=== PATIENT | female | born 1955 | race Native Hawaiian/Other Pacific Islander ===

== ENCOUNTER 2018-08-10 12:56 | Emergency (ER) | payer BC, OTHER ==
--- NOTE | 2018-08-10 14:00 | Emergency Department Report ---
Chief Complaint: Abdominal Pain Stated Complaint: BLOOD IN URINE/KIDNEY PAIN Time Seen by Provider: 08/10/18 13:57 - HPI History of Present Illness: pt presents with left sided flank pain that radiates to the LLQ that began 2 weeks ago (+) hematuria, dysuria, frequency (+) vaginal burning (+) nausea no fever, no vomiting, denies vaginal discharge PMHx fibromylagia, arthritis, migraines PSHx right sided kidney stone removal last kindey stone was in 2006 - Exam Vital Signs: Vital Signs 08/10/18 13:46 Temperature 98.5 F Pulse Rate 65 Respiratory 15 Rate Blood Pressure 137/36 [Left] O2 Sat by Pulse 100 Oximetry MSE screening note: Focused history and physical exam performed. Due to findings the following was ordered: UA, Lab, Ct abd/pelvis without contrast ED Disposition for MSE Condition: Stable Instructions: Abdominal Pain (ED)
[2018-08-10 14:28] LABS: Basophils % (Auto) 0.5 % (0.0-1.8); Eosinophils % (Auto) 0.4 % (0.0-4.3); Hematocrit 33.8 % (30.3-42.9); Hemoglobin 11.9 gm/dl (10.1-14.3); Lymphocytes # (Auto) 3.6 K/mm3 (1.2-5.4); Lymphocytes % (Auto) 36.6 % (13.4-35.0); Mean Corpuscular HGB Conc 35 % (30-34); Mean Corpuscular Volume 95 fl (79-97); Monocytes # (Auto) 0.5 K/mm3 (0.0-0.8); Platelet Count 211 K/mm3 (140-440); Red Blood Count 3.56 M/mm3 (3.65-5.03); Red Cell Distribution Width 12.7 % (13.2-15.2)
[2018-08-10 14:59] LABS: Bilirubin,Urine NEG (Negative); Blood,Urine LG (Negative); Calcium Oxalate Crystals,Urine 1+; Color,Urine Amber (Yellow); Mucus,Urine 3+ /HPF
[2018-08-10 15:05] LABS: RBC,Urine > 182.0 /HPF (0.0-6.0)
[2018-08-10 15:58] VITALS: BP 127/55
[2018-08-10] MEDS ORDERED: ZOFRAN IV ONE (16:09)
[2018-08-10] MEDS ORDERED: DILAUDID IV ONE (16:10)
--- NOTE | 2018-08-10 17:03 | Cat Scan Report ---
PROCEDURE: CT ABDOMEN PELVIS WO CON TECHNIQUE: Computerized axial tomography of the abdomen and pelvis was performed without intravenous contrast. This study is performed without intravascular contrast material and its sensitivity for ab dominal and pelvic pathology, including neoplasms, inflammation, abscess, free fluid, thrombosis, art erial dissection and infarction, is reduced compared with a contrast enhanced study. CT DOSE LENGTH PRODUCT: 658 mGycm HISTORY: left flank pain, LLQ pain, hx of nephrolithiasis COMPARISONS: None . FINDINGS: Lower Lung baires: Calcified granuloma seen right lower lobe posteriorly. Small amount of dependent atelectasis also visualized. Upper Abdomen: Gallbladder, liver, adrenal glands, pancreas and spleen are unremarkable. Kidneys, Ureters and Urinary bladder: The right kidney and right ureter are unremarkable. There are 2 nonobstructing calculi in the lower third of the left kidney. These measure up to 4.4 mm greatest diameter. The left collecting system is not significantly distended however the left ureter appears to be minimally distended. On image number [id number] series 2 axial image there is a 5.4 x 3.7 mm calculus within the distal left ureter. This is located less than 2 cm from the left ureterovesical junction. Left ureter is otherwise unrema rkable. The urinary bladder is only partially filled and shows no focal abnormalities. Retroperitoneum: Atherosclerotic changes are seen in the abdominal aorta. No aneurysm is visualized. Nonspecific subcentimeter lymph nodes are seen in the retroperitoneum. No pathologically enlarged ly mph nodes are identified. Bowel: Moderate sigmoid diverticulosis visualized without evidence of diverticulitis. Bowel loops ar e otherwise unremarkable. Normal-appearing appendix in right lower quadrant. No evidence of bowel obs truction ascites or free intraperitoneal gas. Reproductive organs: Prostate gland does not appear to be significantly enlarged. Other: No acute bone abnormalities are seen. IMPRESSION: Nonobstructing calculi visualized left kidney as described. Distal left ureteral calculus present as described. Left ureter is mildly distended. No significant h ydronephrosis is seen. Prior granulomatous disease. Colonic diverticulosis without evidence of diverticulitis. This document is electronically signed by Larry Lobo MD., August 10 2018 05:01:16 PM ET
--- NOTE | 2018-08-10 17:08 | Emergency Department Report ---
ED General Adult HPI - General Chief complaint: Abdominal Pain Stated complaint: BLOOD IN URINE/KIDNEY PAIN Time Seen by Provider: 08/10/18 13:57 Source: patient Mode of arrival: Ambulatory Limitations: No Limitations - History of Present Illness Initial comments: Patient presents to the emergency department with a chief complaint left flank pain that radiates into her groin. Patient describes the pain as sharp in nature. Patient has a history of kidney stones. Patient denies chest pain, shortness breath, or headache. -: Sudden Location: abdomen Radiation: other (groin) Severity scale (0 -10): 5 Quality: sharp Consistency: colicky Improves with: none Worsens with: none Associated Symptoms: denies other symptoms Treatments Prior to Arrival: none - Related Data Previous Rx's Medication Instructions Recorded Last Taken Type Acetaminophen [Tylenol] 500 mg PO Q6HR #15 tablet 07/18/15 Unknown Rx HYDROcodone/APAP 7.5-325 [[place] 1 each PO Q6HR PRN #20 tablet 08/10/18 Unknown Rx 7.5/325] Ondansetron [Zofran Odt] 4 mg PO Q4HR PRN #20 tab.rapdis 08/10/18 Unknown Rx Ondansetron [Zofran Odt] 4 mg PO Q4HR PRN #20 tab.rapdis 08/10/18 Unknown Rx Sulfamethoxazole/Trimethoprim 1 each PO BID #14 tablet 08/10/18 Unknown Rx [Bactrim DS TAB] Tamsulosin [Flomax] 0.4 mg PO QDAY #7 cap 08/10/18 Unknown Rx Allergies Allergy/AdvReac Type Severity Reaction Status Date / Time ibuprofen [From Motrin] Allergy Unknown Verified 07/18/15 03:51 iodine Allergy Unknown Verified 07/18/15 03:51 ED Review of Systems ROS: Stated complaint: BLOOD IN URINE/KIDNEY PAIN Other details as noted in HPI Comment: All other systems reviewed and negative Constitutional: denies: chills, fever Eyes: denies: eye pain, eye discharge, vision change ENT: denies: ear pain, throat pain Respiratory: denies: cough, shortness of breath, wheezing Cardiovascular: denies: chest pain, palpitations Endocrine: no symptoms reported Gastrointestinal: denies: abdominal pain, nausea, diarrhea Genitourinary: denies: urgency, dysuria, discharge Musculoskeletal: denies: back pain, joint swelling, arthralgia Skin: denies: rash, lesions Neurological: denies: headache, weakness, paresthesias Psychiatric: denies: anxiety, depression Hematological/Lymphatic: denies: easy bleeding, easy bruising ED Past Medical Hx - Past Medical History Hx Arthritis: Yes Hx Headaches / Migraines: Yes Hx Asthma: Yes Additional medical history: Fibromyalgia - Surgical History Additional Surgical History: kidney, Hysterectomy - Social History Smoking Status: Former Smoker Substance Use Type: None - Medications Home Medications: Home Medications Medication Instructions Recorded Confirmed Last Taken Type Acetaminophen [Tylenol] 500 mg PO Q6HR #15 tablet 07/18/15 Unknown Rx HYDROcodone/APAP 7.5-325 [[place] 1 each PO Q6HR PRN #20 tablet 08/10/18 Unknown Rx 7.5/325] Ondansetron [Zofran Odt] 4 mg PO Q4HR PRN #20 tab.rapdis 08/10/18 Unknown Rx Ondansetron [Zofran Odt] 4 mg PO Q4HR PRN #20 tab.rapdis 08/10/18 Unknown Rx Sulfamethoxazole/Trimethoprim 1 each PO BID #14 tablet 08/10/18 Unknown Rx [Bactrim DS TAB] Tamsulosin [Flomax] 0.4 mg PO QDAY #7 cap 08/10/18 Unknown Rx ED Physical Exam - General Limitations: No Limitations General appearance: alert, in no apparent distress - Head Head exam: Present: atraumatic, normocephalic - Eye Eye exam: Present: normal appearance, PERRL, EOMI - ENT ENT exam: Present: mucous membranes moist - Neck Neck exam: Present: normal inspection - Respiratory Respiratory exam: Present: normal lung sounds bilaterally. Absent: respiratory distress - Cardiovascular Cardiovascular Exam: Present: regular rate, normal rhythm. Absent: systolic murmur, diastolic murmur, rubs, gallop - GI/Abdominal GI/Abdominal exam: Present: soft, normal bowel sounds. Absent: distended, tenderness - Extremities Exam Extremities exam: Present: normal inspection - Back Exam Back exam: Present: normal inspection - Neurological Exam Neurological exam: Present: alert, oriented X3, CN II-XII intact. Absent: motor sensory deficit - Psychiatric Psychiatric exam: Present: normal affect, normal mood - Skin Skin exam: Present: warm, dry, intact, normal color. Absent: rash ED Course Vital Signs 08/10/18 08/10/18 13:46 15:57 Temperature 98.5 F 98.6 F Pulse Rate 65 58 L Respiratory 15 16 Rate Blood Pressure 137/36 127/55 [Left] O2 Sat by Pulse 100 100 Oximetry ED Medical Decision Making - Lab Data Result diagrams: 08/10/18 14:11 08/10/18 14:11 Lab Results 08/10/18 08/10/18 08/10/18 Range/Units 14:10 14:11 14:11 WBC 9.9 (4.5-11.0) K/mm3 RBC 3.56 L (3.65-5.03) M/mm3 Hgb 11.9 (10.1-14.3) gm/dl Hct 33.8 (30.3-42.9) % MCV 95 (79-97) fl MCH 33 H (28-32) pg MCHC 35 H (30-34) % RDW 12.7 L (13.2-15.2) % Plt Count 211 (140-440) K/mm3 Lymph % (Auto) 36.6 H (13.4-35.0) % [place] % (Auto) 5.0 (0.0-7.3) % Eos % (Auto) 0.4 (0.0-4.3) % Baso % (Auto) 0.5 (0.0-1.8) % Lymph # 3.6 (1.2-5.4) K/mm3 [place] # 0.5 (0.0-0.8) K/mm3 Eos # 0.0 (0.0-0.4) K/mm3 Baso # 0.0 (0.0-0.1) K/mm3 Seg Neutrophils % 57.5 (40.0-70.0) % Seg Neutrophils # 5.7 (1.8-7.7) K/mm3 Sodium 144 (137-145) mmol/L Potassium 3.6 (3.6-5.0) mmol/L Chloride 106.2 (98-107) mmol/L Carbon Dioxide 26 (22-30) mmol/L Anion Gap 15 mmol/L BUN 14 (7-17) mg/dL Creatinine 0.6 L (0.7-1.2) mg/dL Estimated GFR > 60 ml/min BUN/Creatinine Ratio 23 % Glucose 91 (65-100) mg/dL Calcium 10.6 H (8.4-10.2) mg/dL Total Bilirubin 0.30 (0.1-1.2) mg/dL AST 15 (5-40) units/L ALT 10 (7-56) units/L Alkaline Phosphatase 98 (35-129) units/L Total Protein 6.8 (6.3-8.2) g/dL Albumin 4.2 (3.9-5) g/dL Albumin/Globulin Ratio 1.6 % Lipase 10 L (13-60) units/L Urine Color [place] (Yellow) Urine Turbidity Cloudy (Clear) Urine pH 5.0 (5.0-7.0) Ur Specific [place] 1.026 (1.003-1.030) Urine Protein 100 mg/dl (Negative) mg/dL Urine Glucose (UA) Neg (Negative) mg/dL Urine Ketones Tr (Negative) mg/dL Urine Blood Lg (Negative) Urine Nitrite Neg (Negative) Urine Bilirubin Neg (Negative) Urine Urobilinogen 2.0 (<2.0) mg/dL Ur Leukocyte Esterase Tr (Negative) Urine WBC (Auto) 11.0 H (0.0-6.0) /HPF Urine RBC (Auto) > 182.0 (0.0-6.0) /HPF U Epithel Cells (Auto) 4.0 (0-13.0) /HPF Calcium Oxalate Crystal 1+ Urine Mucus 3+ /HPF - Radiology Data Radiology results: report reviewed - Medical Decision Making Discussed results with patient Critical care attestation.: If time is entered above; I have spent that time in minutes in the direct care of this critically ill patient, excluding procedure time. ED Disposition Clinical Impression: Nephrolithiasis, UTI (urinary tract infection) Disposition: DC-01 TO HOME OR SELFCARE Is pt being admited?: No Does the pt Need Aspirin: No Condition: Stable Instructions: Kidney Stones (ED), Urinary Tract Infection in Women (ED) Additional Instructions: Return if worse Prescriptions: Sulfamethoxazole/Trimethoprim [Bactrim DS TAB] 1 each PO BID #14 tablet Tamsulosin [Flomax] 0.4 mg PO QDAY #7 cap HYDROcodone/APAP 7.5-325 [[place] 7.5/325] 1 each PO Q6HR PRN #20 tablet PRN Reason: Pain Ondansetron [Zofran Odt] 4 mg PO Q4HR PRN #20 tab.rapdis PRN Reason: Nausea Ondansetron [Zofran Odt] 4 mg PO Q4HR PRN #20 tab.rapdis PRN Reason: Nausea Referrals: [facility] MD LAM [Primary Care Provider] - 3-5 Days MAHNAZ VILLAFANA MD [Staff Physician] - 3-5 Days Time of Disposition: 18:30
[2018-08-10 17:10] LABS: Alanine Aminotransferase 10 units/L (7-56); Albumin 4.2 g/dL (3.9-5); BUN/Creatinine Ratio 23; Blood Urea Nitrogen 14 mg/dL (7-17); Calcium 10.6 mg/dL (8.4-10.2); Hemolysis Index 8
[2018-08-10] MEDS ORDERED: MORPHINE IV ONE (18:26)
== END 2018-08-10 19:35 | disposition home or self-care (01) ==
LOC: ED 12:56
DX: N39.0 Urinary tract infection, site not specified (principal); N20.0 Calculus of kidney; M19.90 Unspecified osteoarthritis, unspecified site; G43.909 Migraine, unspecified, not intractable, without status migrainosus; J45.909 Unspecified asthma, uncomplicated; Z90.710 Acquired absence of both cervix and uterus; Z87.891 Personal history of nicotine dependence; Z88.6 Allergy status to analgesic agent; Z88.8 Allergy status to other drugs, medicaments and biological substances
CPT/HCPCS: 36415; 74176; 80053; 81001; 83690; 85025; 96374; 96375; 99284; J1170; J2270; J2405

== ENCOUNTER 2018-10-04 10:27 | Emergency (ER) | payer BC ==
[2018-10-04 10:35] VITALS: BP 151/115
[2018-10-04 11:33] LABS: Basophils % (Auto) 0.5 % (0.0-1.8); Eosinophils % (Auto) 0.6 % (0.0-4.3); Hematocrit 36.9 % (30.3-42.9); Hemoglobin 12.5 gm/dl (10.1-14.3); Lymphocytes # (Auto) 3.4 K/mm3 (1.2-5.4); Lymphocytes % (Auto) 42.6 % (13.4-35.0); Mean Corpuscular HGB Conc 34 % (30-34); Mean Corpuscular Volume 97 fl (79-97); Monocytes # (Auto) 0.5 K/mm3 (0.0-0.8); Monocytes % (Auto) 6.9 % (0.0-7.3); Platelet Count 211 K/mm3 (140-440); Red Blood Count 3.79 M/mm3 (3.65-5.03); Red Cell Distribution Width 13.1 % (13.2-15.2)
[2018-10-04 11:49] LABS: BUN/Creatinine Ratio 20; Blood Urea Nitrogen 12 mg/dL (7-17); Hemolysis Index 11
[2018-10-04 11:55] LABS: Bacteria,Urine 1+ /HPF (Negative); Bilirubin,Urine NEG (Negative); Blood,Urine SM (Negative); Color,Urine Yellow (Yellow); Mucus,Urine FEW /HPF; Protein,Urine <15 mg/dL mg/dL (Negative); Urobilinogen,Urine < 2.0 mg/dL (<2.0)
--- NOTE | 2018-10-04 12:24 | Ultrasound Report ---
ULTRASOUND RENAL BILATERAL HISTORY: Recent kidney stone with worsening pain. TECHNIQUE: transabdominal ultrasound with color Doppler interrogation. FINDINGS: The right kidney measures 10.4cm. Right renal cortex: 1.4cm. The left kidney measure 11.2 s 1.9cm. Left renal cortex: cm. Scans of the kidneys show normal renal contours. There is normal central calyceal clustering and good preservation of the cortical thickness. An approximate 5 mm calyceal stone is identified near the inferior pole of the left kidney. There is no evidence of cystic disease, mass or hydronephrosis. The views of the bladder and the region of the ureters appear normal. IMPRESSION: Left renal calculus. No evidence for hydronephrosis.
--- NOTE | 2018-10-04 12:37 | Vascular Lab Report ---
PROCEDURE: VL VENOUS DUPLEX LE RT TECHNIQUE: Grayscale, color flow and spectral waveform images were obtained of right lower extremity . HISTORY: right thigh pain with swelling COMPARISON: None FINDINGS: There is no deep venous thrombosis seen in the right lower extremity. Flow is demonstrated by color flow and spectral waveform imaging. There is appropriate wall compression and augmentation. There is no evidence of superficial venous thrombus. IMPRESSION: There is no evidence for DVT in right lower extremity. This document is electronically signed by Anne Bond MD., October 04 2018 12:35:04 PM ET
--- NOTE | 2018-10-04 13:15 | Emergency Department Report ---
ED General Adult HPI - General Chief complaint: Extremity Problem,Nontraumatic Stated complaint: LEG PAIN Time Seen by Provider: 10/04/18 11:00 Source: patient Mode of arrival: Ambulatory Limitations: No Limitations - History of Present Illness Initial comments: Patient is a 63-year-old female who is presenting with right leg pain for the past several days as well as back and lower abdominal discomfort. Regarding the patient's leg pain this is been present off and on for the last 2- 3 days. It is located in the medial thigh as well as the inguinal area. She states is worse when she moves. Patient states she has had some swelling to esteban ateral legs intermittently however the pain is primarily in the right thigh. She denies any injury. Patient also has some pressure in the suprapubic region radiating to the lower back. Patient recently had kidney stones states that they were 5 stones but she only passed to. Patient also denies any nausea vomiting fevers chills or dysuria at this time. - Related Data Previous Rx's Medication Instructions Recorded Last Taken Type Acetaminophen [Tylenol] 500 mg PO Q6HR #15 tablet 07/18/15 Unknown Rx HYDROcodone/APAP 7.5-325 [[place] 1 each PO Q6HR PRN #20 tablet 08/10/18 Unknown Rx 7.5/325] Ondansetron [Zofran Odt] 4 mg PO Q4HR PRN #20 tab.rapdis 08/10/18 Unknown Rx Ondansetron [Zofran Odt] 4 mg PO Q4HR PRN #20 tab.rapdis 08/10/18 Unknown Rx Sulfamethoxazole/Trimethoprim 1 each PO BID #14 tablet 08/10/18 Unknown Rx [Bactrim DS TAB] Tamsulosin [Flomax] 0.4 mg PO QDAY #7 cap 08/10/18 Unknown Rx Phenazopyridine [Pyridium] 200 mg PO BID #6 tab 10/04/18 Unknown Rx methOCARBAMOL [Robaxin TAB] 500 mg PO Q6H PRN #10 tablet 10/04/18 Unknown Rx traMADol [Ultram] 50 mg PO Q6HR PRN #12 tablet 10/04/18 Unknown Rx Allergies Allergy/AdvReac Type Severity Reaction Status Date / Time ibuprofen [From Motrin] Allergy Unknown Verified 10/04/18 10:33 iodine Allergy Unknown Verified 10/04/18 10:33 ED Review of Systems ROS: Stated complaint: LEG PAIN Other details as noted in HPI Comment: All other systems reviewed and negative ED Past Medical Hx - Past Medical History Previous Medical History?: Yes Hx Arthritis: Yes Hx Headaches / Migraines: Yes Hx Asthma: Yes Additional medical history: Fibromyalgia - Surgical History Past Surgical History?: Yes Additional Surgical History: kidney, Hysterectomy - Social History Smoking Status: Never Smoker Substance Use Type: None - Medications Home Medications: Home Medications Medication Instructions Recorded Confirmed Last Taken Type Acetaminophen [Tylenol] 500 mg PO Q6HR #15 tablet 07/18/15 Unknown Rx HYDROcodone/APAP 7.5-325 [[place] 1 each PO Q6HR PRN #20 tablet 08/10/18 Unknown Rx 7.5/325] Ondansetron [Zofran Odt] 4 mg PO Q4HR PRN #20 tab.rapdis 08/10/18 Unknown Rx Ondansetron [Zofran Odt] 4 mg PO Q4HR PRN #20 tab.rapdis 08/10/18 Unknown Rx Sulfamethoxazole/Trimethoprim 1 each PO BID #14 tablet 08/10/18 Unknown Rx [Bactrim DS TAB] Tamsulosin [Flomax] 0.4 mg PO QDAY #7 cap 08/10/18 Unknown Rx Phenazopyridine [Pyridium] 200 mg PO BID #6 tab 10/04/18 Unknown Rx methOCARBAMOL [Robaxin TAB] 500 mg PO Q6H PRN #10 tablet 10/04/18 Unknown Rx traMADol [Ultram] 50 mg PO Q6HR PRN #12 tablet 10/04/18 Unknown Rx ED Physical Exam - General Limitations: No Limitations General appearance: alert, in no apparent distress - Head Head exam: Present: atraumatic, normocephalic - Eye Eye exam: Present: normal appearance - ENT ENT exam: Present: mucous membranes moist - Neck Neck exam: Present: normal inspection - Respiratory Respiratory exam: Present: normal lung sounds bilaterally. Absent: respiratory distress, wheezes, rales, rhonchi - Cardiovascular Cardiovascular Exam: Present: regular rate, normal rhythm. Absent: systolic murmur, diastolic murmur, rubs, gallop - GI/Abdominal GI/Abdominal exam: Present: soft, normal bowel sounds. Absent: distended, tenderness, guarding, rebound - Extremities Exam Extremities exam: Present: normal inspection - Back Exam Back exam: Present: normal inspection - Neurological Exam Neurological exam: Present: alert, oriented X3 - Psychiatric Psychiatric exam: Present: normal affect, normal mood - Skin Skin exam: Present: warm, dry, intact, normal color. Absent: rash ED Course Vital Signs 10/04/18 10:34 Temperature 98 F Pulse Rate 58 L Respiratory 18 Rate Blood Pressure 151/115 O2 Sat by Pulse 100 Oximetry ED Medical Decision Making - Lab Data Result diagrams: 10/04/18 11:13 10/04/18 11:13 Lab Results 10/04/18 10/04/18 10/04/18 Range/Units 11:13 11:13 11:29 WBC 8.0 (4.5-11.0) K/mm3 RBC 3.79 (3.65-5.03) M/mm3 Hgb 12.5 (10.1-14.3) gm/dl Hct 36.9 (30.3-42.9) % MCV 97 (79-97) fl MCH 33 H (28-32) pg MCHC 34 (30-34) % RDW 13.1 L (13.2-15.2) % Plt Count 211 (140-440) K/mm3 Lymph % (Auto) 42.6 H (13.4-35.0) % [place] % (Auto) 6.9 (0.0-7.3) % Eos % (Auto) 0.6 (0.0-4.3) % Baso % (Auto) 0.5 (0.0-1.8) % Lymph # 3.4 (1.2-5.4) K/mm3 [place] # 0.5 (0.0-0.8) K/mm3 Eos # 0.0 (0.0-0.4) K/mm3 Baso # 0.0 (0.0-0.1) K/mm3 Seg Neutrophils % 49.4 (40.0-70.0) % Seg Neutrophils # 3.9 (1.8-7.7) K/mm3 Sodium 140 (137-145) mmol/L Potassium 4.4 (3.6-5.0) mmol/L Chloride 103.5 (98-107) mmol/L Carbon Dioxide 25 (22-30) mmol/L Anion Gap 16 mmol/L BUN 12 (7-17) mg/dL Creatinine 0.6 L (0.7-1.2) mg/dL Estimated GFR > 60 ml/min BUN/Creatinine Ratio 20 % Glucose 96 (65-100) mg/dL Calcium 9.0 (8.4-10.2) mg/dL Urine Color Yellow (Yellow) Urine Turbidity Clear (Clear) Urine pH 8.0 H (5.0-7.0) Ur Specific [place] 1.019 (1.003-1.030) Urine Protein <15 mg/dl (Negative) mg/dL Urine Glucose (UA) Neg (Negative) mg/dL Urine Ketones Neg (Negative) mg/dL Urine Blood Sm (Negative) Urine Nitrite Neg (Negative) Urine Bilirubin Neg (Negative) Urine Urobilinogen < 2.0 (<2.0) mg/dL Ur Leukocyte Esterase Neg (Negative) Urine WBC (Auto) 1.0 (0.0-6.0) /HPF Urine RBC (Auto) 8.0 (0.0-6.0) /HPF U Epithel Cells (Auto) 2.0 (0-13.0) /HPF Urine Bacteria (Auto) 1+ (Negative) /HPF Urine Mucus Few /HPF - Radiology Data [facility] [address] [place] [address] Ultrasound Report Signed Patient: FLYNN ALCANTARA R#: [id number] : 1955 Acct:[id number] Age/Sex: 63 / F ADM Date: 10/04/18 Loc: ED Attending Dr: Ordering Physician: RICH STALEY MD Date of Service: 10/04/18 Procedure(s): US renal BILAT Accession Number(s): [id number] cc: RICH STALEY MD ULTRASOUND RENAL BILATERAL HISTORY: Recent kidney stone with worsening pain. TECHNIQUE: transabdominal ultrasound with color Doppler interrogation. FINDINGS: The right kidney measures 10.4cm. Right renal cortex: 1.4cm. The left kidney measure 11.2 s 1.9cm. Left renal cortex: cm. Scans of the kidneys show normal renal contours. There is normal central calyceal clustering and good preservation of the cortical thickness. An approximate 5 mm calyceal stone is identified near the inferior pole of the left kidney. There is no evidence of cystic disease, mass or hydronephrosis. The views of the bladder and the region of the ureters appear normal. IMPRESSION: Left renal calculus. No evidence for hydronephrosis. Transcribed By: TTR Dictated By: ARELY CHAND JR, MD Electronically Authenticated By: ARELY CHAND JR, MD Signed Date/Time: 10/04/181218 DD/ 17 TD/TT: 10/04/181218 - Medical Decision Making Regarding the patient's lower extremity pain there is no DVT seen on ultrasound Doppler. Patient likely was musculoskeletal pain. In regards to the patient's feeling as though she is passing a kidney stone there is no hydronephrosis seen. Patient possibly with some bladder spasm secondary to recently passed stone. Patient to be discharged home with follow-up with her urologist. Critical care attestation.: If time is entered above; I have spent that time in minutes in the direct care of this critically ill patient, excluding procedure time. ED Disposition Clinical Impression: Bladder spasm, Musculoskeletal pain Disposition: -01 TO HOME OR SELFCARE Is pt being admited?: No Does the pt Need Aspirin: No Condition: Stable Instructions: Musculoskeletal Pain (ED), Overactive Bladder (GEN) Additional Instructions: Please follow-up with your primary care physician and urologist Time of Disposition: 13:16
== END 2018-10-04 13:31 | disposition home or self-care (01) ==
LOC: ED 10:27
DX: N32.89 Other specified disorders of bladder (principal); M79.10 Myalgia, unspecified site; M19.90 Unspecified osteoarthritis, unspecified site; G43.909 Migraine, unspecified, not intractable, without status migrainosus; J45.909 Unspecified asthma, uncomplicated; Z90.710 Acquired absence of both cervix and uterus; Z79.899 Other long term (current) drug therapy; Z88.6 Allergy status to analgesic agent; Z88.8 Allergy status to other drugs, medicaments and biological substances
CPT/HCPCS: 36415; 76770; 80048; 81001; 85025; 99284

== ENCOUNTER 2019-02-25 05:57 | Day surgery (SDC) | payer BC ==
[~2019-02-25 05:57] MED LIST: LACTATED RINGERS 1,000 ML IV SCH; ceFAZolin/STERILE WATER 2 GM/20 ML SYRINGE IV NR
[2019-02-25] MEDS ORDERED: MIDAZOLAM 2 MG/2 ML INJ IV NR (06:00)
--- NOTE | 2019-02-25 07:11 | Anesthesia Consultation ---
Anesthesia Consult and Med Hx Date of service: 02/25/19 - Airway Anesthetic Teeth Evaluation: Good ROM Head & Neck: Adequate Mental/Hyoid Distance: Adequate Mallampati Class: Class I Intubation Access Assessment: Good - Pulmonary Exam CTA: Yes - Cardiac Exam Cardiac Exam: RRR - Pre-Operative Health Status ASA Pre-Surgery Classification: ASA2 Proposed Anesthetic Plan: General - Pulmonary Hx Smoking: Yes (STOPPED 1992) Hx Asthma: Yes (last inhaler use 1 wk ago) Hx Respiratory Symptoms: No Hx Sleep Apnea: No (JON PRE SCREEN LOW RISK) - Cardiovascular System Hx Hypertension: Yes Hx Heart Attack/AMI: No Hx Percutaneous Transluminal Coronary Angioplasty (PTCA): No Hx Cardia Arrhythmia: Yes (remote hx PSVT) - Central Nervous System Hx Neuromuscular Disorder: No (fibromyalgia) CVA: No Hx Psychiatric Problems: Yes (anxiety) - Gastrointestinal Hx Gastroesophageal Reflux Disease: Yes (well controlled) - Endocrine Hx Renal Disease: No Hx Liver Disease: No Hx Insulin Dependent Diabetes: No Hx Non-Insulin Dependent Diabetes: No Hx Thyroid Disease: No - Other Systems Hx Obesity: No
--- NOTE | 2019-02-25 07:11 | Anesthesia Day of Surgery ---
Anesthesia Day of Surgery - Day of Surgery Patient Examined: Yes Patient H&P Reviewed: Yes Patient is NPO: Yes
[2019-02-25] MEDS ORDERED: LIDOCAINE MPF (2%) 20 MG/1 ML VIAL 5 ML ONE (07:27)
[2019-02-25] MEDS ORDERED: fentaNYL 100 MCG/2 ML INJ ONE (07:27)
[2019-02-25] MEDS ORDERED: PROPOFOL 200 MG/20 ML VIAL IV ONE (07:27)
[2019-02-25] MEDS ORDERED: ONDANSETRON 4 MG/2 ML INJ IV NR (08:00)
[2019-02-25] MEDS ORDERED: diphenhydrAMINE 50 MG/ML VIAL ONE (08:11)
[2019-02-25] MEDS ORDERED: IOHEXOL 300 MG/ML 50ML IV ONE (08:15)
--- NOTE | 2019-02-25 08:36 | Short Stay Summary ---
Short Stay Documentation Date of service: 02/25/19 - History H&P: obtained from office - Allergies and Medications Current Medications: Allergies ibuprofen [From Motrin] Allergy (Verified 02/21/19 17:12) Anaphylaxis Iodinated Contrast Media Allergy (Verified 02/21/19 17:12) Anaphylaxis iodine Allergy (Verified 02/21/19 17:12) Anaphylaxis shellfish derived Allergy (Verified 02/21/19 17:12) Anaphylaxis Home Medications Medication Instructions Recorded Confirmed Last Taken Type ALPRAZolam [Xanax TAB] 0.5 mg PO TID PRN 02/21/19 02/21/19 02/24/19 11:00 History Albuterol Sulfate [Proventil Hfa] 2 puff IH PRN PRN 02/21/19 02/25/19 02/22/19 10:00 History Butalb/Acetaminophen/Caffeine 1 each PO PRN PRN 02/21/19 02/21/19 02/24/19 11:00 History [Fioricet 50-300-40 mg CAP] Dicyclomine [Bentyl] 20 mg PO PRN PRN 02/21/19 02/21/19 02/24/19 11:00 History Digoxin 0.25 mg PO DAILY 02/21/19 02/21/19 02/24/19 11:00 History Estrogens, Conjugated [Premarin] 0.45 mg PO DAILY 02/21/19 02/21/19 02/24/19 11:00 History ISOSORBIDE MONOnitrate [Imdur ER] 120 mg PO QDAY 02/21/19 02/21/19 02/24/19 11:00 History Verapamil ER [Calan Sr] 240 mg PO BID 02/21/19 02/21/19 02/24/19 11:00 History cloNIDine-TTS PATCH [Catapres-Tts 1 patch TD Q7D 02/21/19 02/21/19 02/24/19 11:00 History 0.2mg Patch] oxyCODONE /ACETAMINOPHEN [Percocet 1 tab PO Q6HR PRN 02/21/19 02/21/19 02/24/19 11:00 History 5/325] Active Medications Cefazolin Sodium (Ancef/Sterile Water 2 Gm/20 Ml) 2 gm IV PREOP NR Stop: 02/25/19 23:59 Fentanyl (Sublimaze) 50 mcg IV Q5MIN PRN PRN Reason: Pain , Severe (7-10) Stop: 02/25/19 15:00 Lactated Ringer's (Lactated Ringers) 1,000 mls @ 100 mls/hr IV DIRECT JOHNNA Last Admin: 02/25/19 07:35 Dose: 100 mls/hr Documented by: Midazolam HCl (Versed) 2 mg IV PREOP NR Stop: 02/25/19 23:59 Last Admin: 02/25/19 07:35 Dose: 2 mg Documented by: Ondansetron HCl (Zofran) 4 mg IV PREOP NR Stop: 02/25/19 14:00 Last Admin: 02/25/19 07:35 Dose: 4 mg Documented by: - Brief post op/procedure progress note Date of procedure: 02/25/19 Pre-op diagnosis: left ureteral stone Post-op diagnosis: other (passed stone, stricture) Procedure: cyto, rpg, left ureteroscopy, stent with external string Anesthesia: REGGIEA Surgeon: MAHNAZ VILLAFANA Estimated blood loss: minimal Condition: stable - Hospital course Hospital course: macrobid noratiya, post op info on chart spoke with daughter - Disposition Condition at discharge: Stable Disposition: DC-01 TO HOME OR SELFCARE Short Stay Discharge Plan Follow up with: POLA PENA MD [Primary Care Provider] - 7 Days
[2019-02-25] MEDS ORDERED: LACTATED RINGERS 1,000 ML ONE (08:41)
[2019-02-25] MEDS: fentaNYL 100 MCG/2 ML INJ IV PRN ×4 (08:42→10:25)
--- NOTE | 2019-02-25 08:53 | Operative Report ---
PREOPERATIVE DIAGNOSIS: Left ureteral stone with hematuria and flank pain. POSTOPERATIVE DIAGNOSES: Left ureteral stone with hematuria and flank pain, distal left ureteral stricture. PROCEDURE: Cystoscopy, bilateral retrograde pyelograms, left ureteroscopy, double-J stent placement (6-Armenian 24 cm with an external string.) SURGEON: Pierre Mccormack MD ANESTHESIA: General. ESTIMATED BLOOD LOSS: Minimal. FLUIDS: Crystalloid. COMPLICATIONS: No complications. INDICATIONS: This patient is a 63-year-old female with long history of stones, underwent CT of abdomen and pelvis earlier this year and was found to have a 5 mm left distal stone. The patient reports a history of stones since 1995. Intermittently, she elected for conservative therapy initially; however, his pain has persisted over the last several months, she agreed to proceed with surgical intervention. She has also had hysterectomy and laparoscopy in the past. DESCRIPTION OF PROCEDURE: The patient was taken to the operative suite, placed in supine position. After adequate general anesthesia, placed in a dorsal lithotomy position, prepped and draped in a sterile fashion. Pancystourethroscopy was performed with a 22-Armenian Storz cystoscope, no acute bladder pathology. No tumors or stones were noted. Both ureteral orifices in normal position. Bilateral retrograde pyelograms were obtained with an 8-Armenian Celio catheter and 8 mL of contrast. No filling defects or obstruction on the right. Left side, there was some narrowing of the distal ureter prompting further evaluation. Two 0.035 Glidewires were placed. Rigid ureteroscopy was performed. The distal ureter had some inflammation and stenosis. I was able to negotiate the scope through this area and up to the renal pelvis; no obvious stone could be appreciated. The patient tolerated the procedure well. A 6-Armenian 24 cm double-J stent was placed under fluoroscopic guidance with an external string. She was extubated and taken to recovery room. She will go home on [employer] and [employer]. Her daughter was informed. JOB# [id number] AKILA/WILFRID
--- NOTE | 2019-02-25 09:11 | Fluoroscopy Report ---
FLUOROSCOPY RETROGRADE UROGRAPHY HISTORY: Left ureteral stone. FINDINGS: 32 seconds of fluoroscopy time was provided by radiology during retrograde urography by the urologist . 6 fluoroscopic images are presented. The images demonstrate normal opacification of the renal collecting systems bilaterally. No stone or abnormal dilatation is detected. Left ureteroscopy was performed per the operative note. A left urete ral stent was placed which is in good position on the final image. Please correlate with the procedur al report as needed. Signer Name: Maurice Campos Jr, MD Signed: 02/25/2019 9:07 AM Workstation Name: [id number]
[2019-02-25] MEDS: hydrALAZINE 20 MG/1 ML INJ IV PRN ×4 (09:32→10:27)
[2019-02-25] MEDS ORDERED: ONDANSETRON 4 MG/2 ML INJ IV ONE (10:30)
--- NOTE | 2019-02-25 12:49 | Post Anesthesia Evaluation ---
- Post Anesthesia Evaluation Patient Participated: Yes Airway Patent: Yes Stable Respiratory Function: Yes Nausea/Vomiting: No Temp > 96.8F: Yes Pain Manageable: Yes Adequeate Hydration: Yes Anesthesia Complications: No
[2019-02-25 17:49] VITALS: BP 160/75
== END 2019-02-25 11:50 | disposition home or self-care (01) ==
LOC: OR 05:57
PROVIDERS: ATTEND Urology
DX: N20.1 Calculus of ureter (principal); R31.9 Hematuria, unspecified; N13.5 Crossing vessel and stricture of ureter without hydronephrosis; G43.909 Migraine, unspecified, not intractable, without status migrainosus; I10 Essential (primary) hypertension; J45.909 Unspecified asthma, uncomplicated; K21.9 Gastro-esophageal reflux disease without esophagitis; M79.7 Fibromyalgia; M19.90 Unspecified osteoarthritis, unspecified site; F41.9 Anxiety disorder, unspecified; Z79.899 Other long term (current) drug therapy; Z91.013 Allergy to seafood; Z88.8 Allergy status to other drugs, medicaments and biological substances; Z91.041 Radiographic dye allergy status; Z87.891 Personal history of nicotine dependence; Z90.710 Acquired absence of both cervix and uterus; Z98.51 Tubal ligation status; Z87.440 Personal history of urinary (tract) infections; Z98.890 Other specified postprocedural states; Z86.2 Personal history of diseases of the blood and blood-forming organs and certain disorders involving the immune mechanism
CPT/HCPCS: 52332; 74420; C1726; C1758; C1769; C2617; J0360; J0690; J1200; J2250; J2405; J2704; J3010; J7120; Q9967

== ENCOUNTER 2020-07-04 07:02 | Day surgery (SDC) | payer OTHER ==
[~2020-07-04 07:02] MED LIST changes: +MIDAZOLAM 2 MG/2 ML INJ IV NR; -ceFAZolin/STERILE WATER 2 GM/20 ML SYRINGE IV NR
--- NOTE | 2020-07-04 07:50 | Anesthesia Consultation ---
<FABIOLA MADSEN - Last Filed: 07/04/20 07:46> Anesthesia Consult and Med Hx Date of service: 07/04/20 - Airway Anesthetic Teeth Evaluation: Bridges (top left) ROM Head & Neck: Adequate Mental/Hyoid Distance: Adequate Mallampati Class: Class I Intubation Access Assessment: Probably Good - Pre-Operative Health Status ASA Pre-Surgery Classification: ASA3 Proposed Anesthetic Plan: General - Pulmonary Hx Smoking: Yes (STOPPED 1992) Hx Asthma: Yes (inhaler used 2 weeks) Hx Respiratory Symptoms: No SOB: Yes COPD: No Home Oxygen Therapy: No Hx Pneumonia: Yes (70s) Hx Sleep Apnea: No (JON PRE SCREEN LOW RISK) - Cardiovascular System Hx Hypertension: Yes (1992) Hx Coronary Artery Disease: No (Cardiac Cath 5 years ago at [facility]) Hx Heart Attack/AMI: No Hx Angina: Yes (takes nitro but does not currently have chest pain) Hx Percutaneous Transluminal Coronary Angioplasty (PTCA): No Hx Cardia Arrhythmia: Yes (remote hx SVT) Hx Pacemaker: No Hx Internal Defibrillator: No Hx Valvular Heart Disease: No Hx Heart Murmur: No Hx Peripheral Vascular Disease: No - Central Nervous System Hx Neuromuscular Disorder: No (fibromyalgia) Hx Seizures: No CVA: No Hx Back Pain: Yes (s/p fall at work) Hx Psychiatric Problems: Yes (anexity) - Gastrointestinal Hx Ulcer: Yes Hx Gastroesophageal Reflux Disease: Yes (well controlled) - Endocrine Hx Renal Disease: Yes (kidney stones) Hx End Stage Renal Disease: No Hx Cirrhosis: No Hx Liver Disease: No Hx Insulin Dependent Diabetes: No Hx Non-Insulin Dependent Diabetes: No Hx Thyroid Disease: No Hx Hypothyroidism: No Hx Hyperthyroidism: No - Hematic Hx Anemia: Yes (NOT RECENT) Hx Sickle Cell Disease: No - Other Systems Hx Alcohol Use: No Hx Substance Use: No Hx Cancer: No Hx Obesity: No <BRI MARCUS - Last Filed: 07/04/20 08:24> Anesthesia Consult and Med Hx - Additional Comments Anesthesia Medical History Comments: Normal nuc stress test 04/2019 with normal E F. NSR on EKG today.
--- NOTE | 2020-07-04 07:56 | Anesthesia Day of Surgery ---
Anesthesia Day of Surgery - Day of Surgery Patient Examined: Yes Patient H&P Reviewed: Yes Patient is NPO: Yes
[2020-07-04] MEDS ORDERED: HYDROcodone/ACETAMINOPHEN 5-325 MG TAB PO PRN (08:24)
[2020-07-04] MEDS ORDERED: fentaNYL 100 MCG/2 ML INJ IV PRN (08:24)
[2020-07-04] MEDS ORDERED: ONDANSETRON 4 MG/2 ML INJ IV PRN (08:24)
[2020-07-04] MEDS ORDERED: ceFAZolin/Water 2 GM/20 ML 2 GM/20 ML SYRINGE IV ONE (08:32)
[2020-07-04] MEDS ORDERED: HYDROmorphone 1 MG/1 ML INJ ONE (09:11)
[2020-07-04] MEDS ORDERED: propofoL 200 MG/20 ML VIAL IV ONE (09:12)
[2020-07-04] MEDS ORDERED: LIDOCAINE MPF (2%) 20 MG/1 ML VIAL 5 ML ONE (09:12)
[2020-07-04] MEDS ORDERED: ceFAZolin/STERILE WATER 2 GM/20 ML SYRINGE IV NR (10:00)
[2020-07-04] MEDS ORDERED: ONDANSETRON 4 MG/2 ML INJ ONE (10:14)
[2020-07-04] MEDS ORDERED: WATER FOR IRRIG STERILE 2000 ML IR ONE (10:15)
--- NOTE | 2020-07-04 10:26 | Short Stay Summary ---
Short Stay Documentation Date of service: 07/04/20 - History H&P: obtained from office - Allergies and Medications Current Medications: Allergies ibuprofen [From Motrin] Allergy (Verified 07/03/20 14:20) Anaphylaxis Iodinated Contrast Media Allergy (Verified 07/03/20 14:20) Anaphylaxis iodine Allergy (Verified 07/03/20 14:20) Anaphylaxis shellfish derived Allergy (Verified 07/03/20 14:20) Anaphylaxis Sulfa (Sulfonamide Antibiotics) Adverse Reaction (Verified 07/04/20 09:26) Rash LOVERSOL Allergy (Uncoded 07/03/20 14:20) Anaphylaxis TYPE OF CONTRAST DYE Home Medications Medication Instructions Recorded Confirmed Last Taken Type ALPRAZolam [Xanax TAB] 0.5 mg PO TID PRN 02/21/19 07/03/20 02/24/19 11:00 History Albuterol Sulfate [Proventil Hfa] 2 puff IH PRN PRN 02/21/19 07/04/20 06/20/20 09:00 History Butalb/Acetaminophen/Caffeine 1 each PO PRN PRN 02/21/19 07/04/20 07/03/20 09:00 History [Fioricet 50-300-40 mg CAP] Dicyclomine [Bentyl] 20 mg PO PRN PRN 02/21/19 07/04/20 06/27/20 09:00 History Estrogens, Conjugated [Premarin] 0.45 mg PO DAILY 02/21/19 07/04/20 07/03/20 09:00 History ISOSORBIDE MONOnitrate [Imdur ER] 30 mg PO QDAY 02/21/19 07/04/20 07/04/20 05:00 History Verapamil ER [Calan Sr] 240 mg PO BID 02/21/19 07/04/20 07/04/20 05:00 History cloNIDine-TTS PATCH [Catapres-Tts 1 patch TD Q7D 02/21/19 07/04/20 06/29/20 09:00 History 0.2mg Patch] oxyCODONE /ACETAMINOPHEN [Percocet 1 tab PO Q6HR PRN 02/21/19 07/03/20 02/24/19 11:00 History 5/325] Magnesium 200 mg PO DAILY 06/19/20 07/04/20 06/13/20 09:00 History Metoprolol [Lopressor TAB] 50 mg PO DAILY 06/19/20 07/04/20 07/04/20 05:00 History Ondansetron (Nf) [Zofran TAB] 8 mg PO Q8HR PRN 06/19/20 07/04/20 07/01/20 09:00 History Active Medications Hydrocodone Bitart/Acetaminophen (Hydrocodone/Acetaminophen 5-325 Mg Tab) 2 each PO ONCE PRN PRN Reason: Pain, Moderate (4-6) Stop: 07/04/20 18:00 Cefazolin Sodium (Cefazolin/Sterile Water 2 Gm/20 Ml Syringe) 2 gm IV PREOP NR Stop: 07/04/20 23:00 Fentanyl (Fentanyl 100 Mcg/2 Ml Inj) 50 mcg IV Q5MIN PRN PRN Reason: Pain , Severe (7-10) Stop: 07/04/20 23:00 Lactated Ringer's (Lactated Ringers) 1,000 mls @ 100 mls/hr IV DIRECT JOHNNA Stop: 07/04/20 23:59 Last Admin: 07/04/20 08:40 Dose: 100 mls/hr Documented by: Midazolam HCl (Midazolam 2 Mg/2 Ml Inj) 2 mg IV PREOP NR Stop: 07/04/20 23:59 Last Admin: 07/04/20 09:10 Dose: 2 mg Documented by: Ondansetron HCl (Ondansetron 4 Mg/2 Ml Inj) 4 mg IV ONCE PRN PRN Reason: Nausea And Vomiting Stop: 07/04/20 18:00 - Brief post op/procedure progress note Date of procedure: 07/04/20 Pre-op diagnosis: gross hematuria Post-op diagnosis: other (left ureteral stone) Procedure: csto, rpg, left ureteroscopy stent with external string Anesthesia: GETA Surgeon: MAHNAZ VILLAFANA Estimated blood loss: minimal Pathology: none Condition: stable - Hospital course Hospital course: macrobid ,norco, post op info on chart - Disposition Condition at discharge: Stable Disposition: DC-01 TO HOME OR SELFCARE Short Stay Discharge Plan Follow up with: JAYESH RODRIGEZ MD [Primary Care Provider] - 7 Days
--- NOTE | 2020-07-04 10:40 | Operative Report ---
PREOPERATIVE DIAGNOSIS: Gross hematuria. POSTOPERATIVE DIAGNOSES: Gross hematuria, left ureteral stone. PROCEDURE: Cystoscopy, bilateral retrograde pyelograms, left ureteroscopy, basket stone extraction, double-J stent with an external string (6-Barbadian 22 cm). SURGEON: Pierre Mccormack MD ANESTHESIA: General. ESTIMATED BLOOD LOSS: Minimal. FLUIDS: Crystalloid. COMPLICATIONS: No complications. INDICATIONS: This patient is a 64-year-old female known to our service with a history of stones. She had an episode of gross hematuria and pain. She has had previous history of a left ureteral stone. She presents now for surgical intervention. DESCRIPTION OF PROCEDURE: The patient was taken to the operative suite, placed in a supine position. After adequate general anesthesia, placed in a dorsal lithotomy position, prepped and draped in a sterile fashion. Pancystourethroscopy was performed with a 22-Barbadian Storz cystoscope, no urethral abnormalities. Bladder, no tumors or stones were noted. Website Admin film suggested a midureteral stone on the left approximately 4 mm. Bilateral retrograde pyelograms were obtained with an 8-Barbadian [place] catheter and 8 mL of contrast. No filling defects or obstruction on the right, obvious defect in the mid ureter at the level of L4 on the left, 0.035 Glidewire x2 was placed up the left collecting system. Rigid ureteroscopy was performed. Yellow stone could be visualized. It was engaged with a 3-Barbadian Judy basket and removed and will be sent for routine pathologic evaluation. A 6-Barbadian 22 cm double-J stent with an external string was left indwelling. Bladder was drained. She was extubated and taken to recovery room. She will go home on [employer] and follow up in the office. JOB# [id number] [facility]
[2020-07-04 11:02] VITALS: BP 139/58
--- NOTE | 2020-07-04 11:18 | Fluoroscopy Report ---
[place] retrograde urography INDICATION / CLINICAL INFORMATION: CALCULUS OF KIDNEY. COMPARISON: None available. FINDINGS: Spot intraoperative images were used for surgical guidance during bilateral retrograde pyelogram and left JJ ureteral stent placement. Please see dedicated urology notes for further details. Fluoroscopy time: 32 seconds. Fluoroscopic images: 7. Signer Name: Zak Whitt MD Signed: 07/04/2020 11:13 AM Workstation Name: [id number]
--- NOTE | 2020-07-05 11:17 | Electrocardiograph Report ---
[facility] Test Date: 2020-07-04 Test Time: 08:13:17 Pat Name: FLYNN WASHINGTON Department: Room: Gender: F It Service Delivery Manager: THADDEUS : 1955 Requested By: BRI MARCUS Order Number: [id number] Reading MD: Estevan Herbert Measurements Intervals [place] Rate: 56 P: 54 WY: 215 QRS: 17 QRSD: 99 T: 94 QT: 441 QTc: 427 Interpretive Statements Sinus rhythm Borderline prolonged [place] interval Probable LVH with secondary repol abnrm No previous ECG available for comparison Electronically Signed On 07-05-2020 8:16:40 PDT by Estevan Herbert
== END 2020-07-04 11:30 | disposition home or self-care (01) ==
LOC: OR 07:02
PROVIDERS: ATTEND Urology
DX: R31.0 Gross hematuria (principal); N20.1 Calculus of ureter; G43.909 Migraine, unspecified, not intractable, without status migrainosus; I20.8 Other forms of angina pectoris; I10 Essential (primary) hypertension; J45.909 Unspecified asthma, uncomplicated; K21.9 Gastro-esophageal reflux disease without esophagitis; M79.7 Fibromyalgia; M19.90 Unspecified osteoarthritis, unspecified site; F41.9 Anxiety disorder, unspecified; Z98.890 Other specified postprocedural states; Z88.2 Allergy status to sulfonamides; Z91.013 Allergy to seafood; Z88.8 Allergy status to other drugs, medicaments and biological substances; Z91.041 Radiographic dye allergy status; Z79.899 Other long term (current) drug therapy; Z87.01 Personal history of pneumonia (recurrent); Z98.51 Tubal ligation status; Z90.710 Acquired absence of both cervix and uterus
CPT/HCPCS: 52332; 52352; 74420; 93005; A4217; C1758; C1769; C2617; J0690; J1170; J2250; J2405; J2704; J7120; Q9967